=== PATIENT | male | born 1945 | race Caucasian/White ===

== ENCOUNTER 2019-03-08 05:16 | Inpatient (IN) ==
[2019-03-02 19:10] LABS: Basophils # (Auto) 0 K/mcL (0.0-0.3); Basophils % (Auto) 0.4 % (0.0-2.0); Eosinophils # (Auto) 0.2 K/mcL (0.0-0.7); Eosinophils % (Auto) 2.6 % (0.0-7.0); Granulocytes % (Auto) 56.2 % (38.0-78.0); Hematocrit 48.7 % (41.0-55.0); Lymphocytes % (Auto) 31.5 % (15.5-49.0); Mean Cell Volume 95.4 fL (80.0-100.0); Mean Corpuscular HGB Conc 32.9 g/dL (31.0-36.0); Mean Platelet Volume 8.9 fL (7.4-10.4); Monocytes # (Auto) 0.6 K/mcL (0.1-0.9); Monocytes % (Auto) 9.3 % (1.0-12.0); Platelet Count 204 K/mcL (140-440); Red Cell Distribution Width 13.6 % (11.5-14.5); WBC 6.3 K/mcL (4.5-11.0)
[2019-03-02 19:50] LABS: Blood Urea Nitrogen 19 mg/dl (8-23); Calcium 9.5 mg/dl (8.6-10.4); Carbon Dioxide 22 mmol/L (22-30); Chloride 102 mmol/L (96-108); Glomerular Filtration Rate 89; Glucose 109 mg/dL (70-105)
[2019-03-02 20:04] LABS: Appearance,Urine CLEAR; Bilirubin,Urine NEG (NEG); Color,Urine YELLOW; Culture Indicated,Urine NO; Glucose,Urine (UA) NEGATIVE (NEG); Ketones,Urine NEG (NEG); Leukocyte Esterase,Urine NEG /uL (NEG); Nitrate,Urine NEG (NEG); Protein,Urine NEG (NEG); Specific Gravity,Urine 1.017 (1.000-1.035); Urine Blood NEG mg/dL (<0.03); Urobilinogen,Urine NEG (NEG)
[2019-03-02 20:20] LABS: Estimated Average Glucose(eAG) 123 mg/dL; Hemoglobin A1C 5.9 % HGB (4.0-6.0)
[~2019-03-08 05:16] MED LIST: IPRATROPIUM/ALBUTEROL 3 ML AMPUL.NEB NEB PRN; SCOPOLAMINE 1 PATCH PATCH TOPICAL PRN
[2019-03-08] MEDS ORDERED: ceFAZolin 2 GM in DEXTROSE 5% IN WATER 50 ML IV SCH (06:00)
[2019-03-08] MEDS ORDERED: CELECOXIB 200 MG CAPSULE PO SCH (06:00)
[2019-03-08] MEDS ORDERED: oxyCODONE 10 MG TAB.ER.12H PO SCH (06:00)
[2019-03-08] MEDS ORDERED: PREGABALIN 75 MG CAPSULE PO SCH (06:00)
[2019-03-08] MEDS ORDERED: PHENYLEPHRINE 10 MG/ML VIAL IV ONE (07:50)
[2019-03-08] MEDS ORDERED: LIDOCAINE HCL/PF 100 MG/5 ML SYRINGE IV ONE (07:50)
[2019-03-08] MEDS ORDERED: ePHEDrine 50 MG/ML AMPUL IV ONE (07:50)
[2019-03-08] MEDS ORDERED: PROPOFOL 200 MG/20 ML VIAL IV ONE (07:50)
[2019-03-08] MEDS ORDERED: TRANEXAMIC ACID 1,000 MG/10 ML VIAL IV ONE (07:50)
[2019-03-08] MEDS ORDERED: DEXAMETHASONE 10 MG/ML VIAL IV ONE (07:50)
[2019-03-08] MEDS ORDERED: KETAMINE 100 MG/ML ML IV ONE (07:50)
[2019-03-08] MEDS ORDERED: GLYCOPYRROLATE 0.2 MG/ML VIAL IV ONE (07:50)
[2019-03-08] MEDS ORDERED: ONDANSETRON 4 MG/2 ML VIAL IV ONE (07:50)
[2019-03-08] MEDS ORDERED: FLEETS ADULT ENEMA PR PRN (09:16)
[2019-03-08] MEDS ORDERED: POLYETHYLENE GLYCOL 3350 17 GM PACKET PO PRN (09:16)
[2019-03-08] MEDS ORDERED: DEXTROSE 50% 50 ML VIAL IV PRN (09:16)
[2019-03-08] MEDS ORDERED: MAGNESIUM HYDROXIDE 30 ML ORAL.SUSP PO PRN (09:16)
[2019-03-08] MEDS ORDERED: TRANEXAMIC ACID 1,000 MG/10 ML VIAL IV SCH (09:16)
[2019-03-08] MEDS ORDERED: BISACODYL 10 MG SUPP.RECT PR PRN (09:16)
[2019-03-08] MEDS ORDERED: DEXTROSE 31 GM ORAL.SUSP PO PRN (09:16)
[2019-03-08] MEDS ORDERED: BENZOCAINE/MENTHOL 1 LOZENGE PO PRN (09:16)
--- NOTE | 2019-03-08 09:16 | Brief Operative Note ---
Date of procedure: 03/08/19 Pre-op diagnosis: Right hip DJD Post-op diagnosis: same Procedure: Right anterior total hip arthroplasty Grafts/Implants: Yes (Depuy Actis 5 Hi stem, +1.5 36 delta head, 54 cup, neutral altrx liner) Anesthesia: spinal, GLMA Findings: arthritis Complications: none Surgeon: Omar Dumont Silk Top Hat Body Maker: Bladimir Forbes Estimated blood loss (cc): 300 Specimens Removed/Pathology: none sent Condition: stable Disposition: PACU
--- NOTE | 2019-03-08 09:39 | Operative Note ---
DATE OF OPERATION: 03/08/2019 PREOPERATIVE DIAGNOSIS: Right hip severe osteoarthritis. POSTOPERATIVE DIAGNOSIS: Right hip severe osteoarthritis. PROCEDURE PERFORMED: Right anterior total hip arthroplasty placing a DePuy Actis size 5 high offset femoral stem; a +1.5, 36 mm delta ceramic head ball; a 54 [place] cup with a neutral Altrx liner. SURGEON: Omar Dumont M.D. GEOLOGICAL SURVEY FIELD ASSISTANT: Betito Forebs PA-C. The PA's assistance was required for the safe and efficient completion of the entire case. This provider's expertise and technical skill were required throughout the case. The PA assisted with preoperative coordination, intraoperative retraction, wound closure, dressing and splint application, as well as postoperative documentation and care coordination. ANESTHESIA: Spinal plus general. DRAINS: None. SPECIMENS: Femoral head which was discarded. BLOOD LOSS: 300 mL. COMPLICATIONS: None. POSTOPERATIVE CONDITION: Stable. INDICATIONS FOR SURGERY: This is a 73-year-old male who has had longstanding, progressive worsening right hip pain. Radiographs showed severe osteoarthritis bone on bone. FINDINGS AT SURGERY: Severe arthritis. Post implantation showed satisfactory component position with minimal leg lengthening. PROCEDURE IN DETAIL: The patient had been seen preoperatively. Informed consent obtained after discussion of risks and benefits of surgery. Risks including, but not limited to, bleeding; infection; injury to nerves, blood vessels, and other surrounding structures; anesthetic risks; incomplete or no resolution of symptoms; leg length discrepancy; dislocation; fracture; DVT and pulmonary embolus risks; and the possibility of needing further revision joint surgery. The patient understood these risks and wished to proceed. Correct operative site was marked and then spinal anesthesia given. The patient was then taken to the operating room and LMA general given. The patient was carefully transferred to the fracture table and then the operative hip was carefully prepped and draped in normal sterile fashion. Timeout was performed verifying patient name, operative site, and plan. Ioban was used to cover all skin surfaces. A standard anterior approach incision was made with a scalpel through skin and subcutaneous tissue. Hemostasis was obtained with Bovie cautery. Careful blunt dissection was taken down on the tensor fascia and then this was undermined circumferentially. IrriSept was irrigated and a ring retractor placed. Tensor fascia was incised in line with muscle fibers and then careful blunt dissection taken medial to the muscle belly. Blunt cobra retractors were placed on the superior and inferior femoral neck and then circumflex vessels were coagulated and cut and vastus fascia split distally. Anterior capsulectomy was performed and then the capsule releases. Corkscrew was placed in the femoral head. Prior to placement of the corkscrew we did take x-rays for joint point. Once a corkscrew was placed we used fluoroscopy to identify our approximate neck cut trajectory and then our femoral neck was cut with oscillating tip saw. Femoral head was removed and the acetabulum exposed. Labrum was excised circumferentially as well as soft tissue from the floor. We then irrigated with IrriSept. We then began sequentially reaming until 1 mm smaller than the final implant. We then opened the acetabular component. IrriSept was irrigated, after a minute pulse lavaged with saline and then the cup was impacted using the [id number]. Joint point was used to verify satisfactory cup position. A center hole cover was placed and then the acetabular liner was carefully aligned and impacted and carefully verified to be fully seated. We then released traction. The leg was externally rotated and released capsule around the medial neck. The leg was then extended and adducted. Capsule was released out towards greater trochanter and then the proximal femur was exposed. Box osteotome was used to gain canal entry and an awl was used to identify canal trajectory. Rongeur and rasp were used to lateralize and then we began sequentially broaching up to the final size. We calcar planed down onto the broach and then the neck trial and head ball were placed. The hip was reduced. Fluoro was brought in and x-rays taken, joint point was used to verify satisfactory position. We then re-dislocated and removed the trial implants. Definitive implants were opened. We then irrigated the femoral canal with IrriSept again, after a minute pulse lavaged with saline. The final stem was impacted and seated. We then opened the head ball. The stem was carefully cleaned and dried and the head ball was impacted. We then reduced the hip with satisfactory tension. Final fluoro images were taken and saved. We irrigated the joint with IrriSept, after a minute pulse lavaged with saline again and then closed the tensor fascia with two running #1 Vicryls, one running proximal, one running distal and a ring retractor was removed. Final IrriSept irrigation was done, after a minute final pulse lavage, and then fat was tacked to fascia with Vicryl and then 2-0 Monocryl for subcutaneous and sunil for skin. Xeroform and sterile dressing were applied. The patient was then awakened, extubated, and transferred to recovery in stable condition. CRISTY:juliano Job ID: [id number] Doc ID: [id number] Omar Dumont MD
[2019-03-08] MEDS: KETOROLAC 15 MG/ML VIAL IV PRN (10:01)
--- NOTE | 2019-03-08 10:30 | XRay Report ---
CLINICAL INFORMATION: Postsurgical follow-up TECHNIQUE: AP pelvis. AP and lateral right hip COMPARISON: Previous AP pelvis dated 10/23/2015 FINDINGS: Status post right total hip arthroplasty. Acetabular and femoral head component are in anatomic positions. There are skin sunil present. There is soft tissue and intra-articular postsurgical gas IMPRESSION: Status post right total hip arthroplasty Interpreted and Authenticated by: Daniele Barajas 03/08/19
[2019-03-08] MEDS: 0.9 % SODIUM CHLORIDE 1,000 ML IV SCH ×2 (10:49→20:50)
[2019-03-08] MEDS: HYDROcodone/APAP 10/325MG TABLET PO PRN ×4 (10:51→23:27)
[2019-03-08] MEDS: ONDANSETRON 4 MG/2 ML VIAL IV PRN ×2 (10:52→19:36)
[2019-03-08] MEDS: INSULIN LISPRO 1 UNIT/0.01 ML UNIT SQ SCH ×3 (11:04→21:01)
--- NOTE | 2019-03-08 13:29 | XRay Report ---
CLINICAL INFORMATION: Right total hip arthroplasty TECHNIQUE: 0.5 minutes intraoperative fluoroscopy utilized by Dr. Dumont. Intraoperative spot films obtained. IMPRESSION: Right total hip arthroplasty Interpreted and Authenticated by: Daniele Barajas 03/08/19
[2019-03-08] MEDS: 0.9 % SODIUM CHLORIDE 10 ML SYRINGE IV SCH ×2 (14:03→23:07)
[2019-03-08] MEDS: ceFAZolin 1 GM VIAL IV SCH ×2 (14:52→23:06)
--- NOTE | 2019-03-08 16:08 | Discharge Summary ---
Providers - Providers Patient information: Note initiated : 03/08/19 at 4:03 pm Service Date, if different from initiated Date: [] Patient: Pal Peña 73 y/o M admitted on 03/08/19 for Right Total Hip Arthroplasty Anterior. Chief Complaint: Pt examined on 03/09/19. NVI-Distal, Bandages c/d/i. Pt ready for discharge to home today. Discharge date: 03/09/19 Hospitalization Hospital Course: Pt was admitted for a L EVETTE. Pt admitted on the day of admission. Pt spent one night on the floor for IV pain meds, IV abx, and PT. Pt discharged on post-op day 1. ASA for DVT prophylaxis. f/u in 2 weeks. Discharge diagnosis: L hip OA Exam - Exam Clean and dry: Yes Weight bearing status: as tolerated Ortho Discharge - EVETTE - Patient Instructions Diet: Regular Diet Activity: activity as tolerated Total Hip Protocol: Follow activity instructions as provided by Physical Therapy. Dressing Care: May shower in 2 days - Follow Up Plan Follow Up Appointments: Bladimir Forbes PA-C [Physician Caterer'S Aide] - 03/24/19 1:40 pm Disposition: Home, Self-Care Prognosis: Good Rehab Potential: Good Overall status at discharge: patient is progressing back to baseline - Orders For Discharge Prescriptions: Aspirin 81 mg PO BID #60 tab.chew Transmission Status: Received by [id number] HYDROcodone/APAP 10/325MG [[place] 10-325Mg] 1 - 2 tab PO Q4HP PRN #80 tab PRN Reason: Pain Level 3-6 Prescription Printed Additional Discharge Orders: Physical Therapy at Discharge - General Location: None Selected Walker Location: None Selected Pending Studies Resuscitation Status Full Code Diet Consistent Carbohydrate Diet Start ThuMar 08 918 Hydrocodone Bitart/Acetaminophen ([place] 10/325mg) 0 tab PO Q4HP PRN PRN Reason: PAIN LEVEL 3-6 Last Admin: 03/08/19 14:51 Dose: 2 tab Documented by: Admin: 03/08/19 10:51 Dose: 2 tab Documented by: JERRI Cefazolin Sodium (Ancef) 2 gm IV Q8H LENNY Stop: 03/08/19 23:01 Last Admin: 03/08/19 14:52 Dose: 2 gm Documented by: JERRI Diagnostic Test (Pha) (Accu-Chek) 1 each FS ACHS LENNY Last Admin: 03/08/19 11:04 Dose: 1 each Documented by: JERRI Sodium Chloride (Sodium Chloride 0.9%) 1,000 mls @ 125 mls/hr IV .Q8H LENNY Last Admin: 03/08/19 10:49 Dose: 125 mls/hr Documented by: JERRI Insulin Human Lispro (Humalog) 0 unit SQ ACHS LENNY; Protocol Last Admin: 03/08/19 11:04 Dose: Not Given Documented by: JERRI Ketorolac Tromethamine (Toradol) 15 mg IV Q6HP PRN PRN Reason: Pain Stop: 03/10/19 09:19 Last Admin: 03/08/19 10:01 Dose: 15 mg Documented by: COURTNEY Ondansetron HCl (Zofran) 4 mg IV Q4HP PRN PRN Reason: Nausea And Vomiting Last Admin: 03/08/19 10:52 Dose: 4 mg Documented by: JERRI Sodium Chloride (Saline Flush) 10 ml IV Q8 LENNY Last Admin: 03/08/19 14:03 Dose: Not Given Documented by: JERRI Shift Summary 03/08/19 05:15 Shift Summary by Aida Aguiar Admit for rt total hip anterior. Pt is [place]. Has a hx of HTN, arthritis, hematuria, cystoscopy and hypoglycemia (will check BS on arrival). Orders to type and screen an arrival. Will update with verbal report Initialized on 03/08/19 05:15 - END OF NOTE
[2019-03-08] MEDS: DOCUSATE SODIUM 100 MG CAPSULE PO SCH (20:58)
[2019-03-08] MEDS: ASPIRIN 81 MG TAB.CHEW PO SCH (20:58)
[2019-03-08] MEDS ORDERED: SENNOSIDES 1 TABLET PO SCH (21:00)
[2019-03-09] MEDS: 0.9 % SODIUM CHLORIDE 1,000 ML IV SCH ×2 (01:17→09:34)
[2019-03-09] MEDS: HYDROcodone/APAP 10/325MG TABLET PO PRN ×2 (05:45→11:21)
[2019-03-09] MEDS: 0.9 % SODIUM CHLORIDE 10 ML SYRINGE IV SCH (05:46)
[2019-03-09] MEDS: INSULIN LISPRO 1 UNIT/0.01 ML UNIT SQ SCH (07:11)
[2019-03-09] MEDS ORDERED: MULTIVIT,THER IRON,CA,FA & MIN 1 TABLET PO SCH (09:00)
[2019-03-09] MEDS ORDERED: LISINOPRIL 10 MG TABLET PO SCH (09:00)
[2019-03-09] MEDS ORDERED: VITAMIN B COMPLEX 1 CAPSULE PO SCH (09:00)
[2019-03-09] MEDS ORDERED: LACTOBACILLUS 1 CAPSULE PO SCH (09:00)
[2019-03-09] MEDS ORDERED: VITAMIN D3 1,000 UNIT TABLET PO SCH (09:00)
[2019-03-09] MEDS ORDERED: HYDROCHLOROTHIAZIDE 25 MG TABLET PO SCH (09:00)
[2019-03-09] MEDS ORDERED: ASCORBIC ACID 500 MG TABLET PO SCH (09:00)
[2019-03-09] MEDS: DOCUSATE SODIUM 100 MG CAPSULE PO SCH (09:04)
[2019-03-09] MEDS: ASPIRIN 81 MG TAB.CHEW PO SCH (09:05)
[2019-03-09] MEDS: KETOROLAC 15 MG/ML VIAL IV PRN (09:33)
== END 2019-03-09 11:30 | disposition home or self-care (01) | DRG 470 ==
LOC: MEDSUR 05:16
PROVIDERS: ADMIT Orthopaedic Surgery; ATTEND Orthopaedic Surgery